=== PATIENT | male | born 2000 | race Caucasian/White ===

== ENCOUNTER 2022-01-16 19:37 | Emergency (ER) | payer SELFPAY ==
[~2022-01-16] VITALS: Ht 180.3 cm; Wt 81.6 kg
[2022-01-16] MEDS ORDERED: ACETAMINOPHEN 325 MG TAB PO ONE (21:00)
== END 2022-01-16 22:46 | disposition home or self-care (01) ==
LOC: ER 19:45
DX: R50.9 Fever, unspecified (principal); U07.1 COVID-19; R05.9 Cough, unspecified; R51.9 Headache, unspecified
CPT/HCPCS: 83518; 87070; 99283; U0002